=== PATIENT | female | born 1965 ===

== ENCOUNTER 2017-10-07 22:16 | Emergency (ER) | payer OTHER ==
[2017-10-07 22:52] VITALS: RESP 18; TEMP 98.4; O2SAT 97
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
[2017-10-08 01:55] VITALS: BP 160/102; PULSE 73
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
--- NOTE | 2017-10-10 13:42 | CARD ---
APPROVED REPORT EKG Measurement Heart [id number] <Conclusion> Normal sinus rhythm Minimal voltage criteria for LVH, may be normal variant Borderline ECG
== END 2017-10-08 01:57 | disposition home or self-care (01) ==
LOC: H.ER 22:16
DX: S09.90XA Unspecified injury of head, initial encounter (principal); V43.62XA Car passenger injured in collision with other type car in traffic accident, initial encounter; Y92.410 Unspecified street and highway as the place of occurrence of the external cause; E11.9 Type 2 diabetes mellitus without complications; I10 Essential (primary) hypertension